=== PATIENT | female | born 1985 ===

== ENCOUNTER 2019-02-17 09:56 | Inpatient (IN) | payer MEDICAID ==
[2019-02-17 10:47] VITALS: BMI 29.9
[2019-02-17] MEDS ORDERED: Penicillin G 5 Million Unit Vial IVPB ONE ×2 (10:49→11:30)
[2019-02-17] MEDS ORDERED: Lactated Ringer's 1,000 ML IV SCH (11:00)
[2019-02-17 11:17] LABS: BASO % 0.4 % (0.0-2.0); EOS # 0.1 K/uL (0.0-0.7); EOS % 1.4 % (0.0-4.0); HEMOGLOBIN 11.5 g/dL (11.0-16.0); LYMPH # 2.6 K/uL (1.0-4.3); LYMPH % 28.2 % (20.0-40.0); MEAN CELL VOLUME 83.5 fL (81.0-99.0); MEAN CORPUSCULAR HEMOGLOBIN 28.3 pg (27.0-31.0); MEAN CORPUSCULAR HGB CONC 33.8 g/dL (33.0-37.0); MEAN PLATELET VOLUME 11.2 fL (7.2-11.7); MONO # 0.4 K/uL (0.0-0.8); MONO % 4.1 % (0.0-10.0); NEUT # 6.1 K/uL (1.8-7.0); NEUT % 65.9 % (50.0-75.0); RBC 4.08 Mil/uL (3.80-5.20); RED CELL DISTRIBUTION WIDTH 15.9 % (11.5-14.5); WHITE BLOOD COUNT 9.2 K/uL (4.8-10.8)
[2019-02-17 11:33] LABS: ALB/GLOB RATIO 1.1 (1.0-2.1); ALBUMIN 3.8 g/dL (3.5-5.0); ALT/SGPT 11 U/L (9-52); AST/SGOT 26 U/L (14-36); BLOOD UREA NITROGEN 9 mg/dL (7-17); CALCIUM 9.5 mg/dl (8.6-10.4); GFR NON-AFRICAN AMERICAN > 60
[2019-02-17] MEDS ORDERED: Fentanyl/Bupivacaine HCl 250 ML EPI ONE (11:36)
[2019-02-17 11:43] LABS: SQUAMOUS EPITHIAL 1 /hpf (0-5); URINE BILIRUBIN NEGATIVE (NEGATIVE); URINE BLOOD NEGATIVE (NEGATIVE); URINE CLARITY Clear (Clear); URINE COLOR Straw (YELLOW); URINE GLUCOSE (UA) NORMAL (Normal); URINE LEUKOCYTE ESTERASE NEG Leu/uL (Negative); URINE PROTEIN NEGATIVE (NEGATIVE); URINE UROBILINOGEN NORMAL mg/dL (0.2-1.0)
[2019-02-17] MEDS ORDERED: Oxytocin 20 units in LR 2,000 ML IV ONE (14:15)
[2019-02-17] MEDS ORDERED: Oxytocin 30 UNIT in NS 500 ml 30 UNITS/500 ML BAG IV SCH (16:10)
[2019-02-17] MEDS ORDERED: Oxytocin 30 UNIT in NS 500 ml 30 UNITS/500 ML BAG IV ONE (16:13)
[2019-02-17] MEDS ORDERED: Benzocaine/Menthol 20%-0.5% Topical Spray (60 ml) TOP PRN (16:56)
[2019-02-17] MEDS ORDERED: Oxycodone/Acetaminophen 5/325 mg Tab PO PRN (16:56)
--- NOTE | 2019-02-17 19:38 | OBPN ---
Datetime: 02/17/2019 13:48 IP Progress Note Comment: Patient seen and examined at bedside Patient is with epidural Grossly ruptured with light meconium SVE: 10/100cm/0, with left anterior lip Plan: Labor down, allow second dose of penicillin G at 15:30 and initiate pitocin after second dos e of antibiotics -Continue to anticipate vaginal delivery All plans and management discussed with Dr. Pushpa Curry DO, PGY 2 OB ADDENDUM: pt seen _ examined by me w/ dr curry. agree with above p: will have printed circuit designer attend delivery.
--- NOTE | 2019-02-17 19:55 | OBDS ---
DELIVERY PERSONNEL Delivery Doctor: Xenia Goins MD Diesel Engine Fitter: Jes Forte RN Anesthesiologist: Dr Ruffin Resident: Dr Nick Em MATERNAL INFORMATION Delivery Anesthesia: Epidural Medications in Delivery: 30 units of pitocin in 500 ml NS Placenta Cultured: No Maternal Complications: None Other Maternal Complications: +GBS RN Comments: liveborn female infant, 9,9 Provider Comments: 33 years now delivered a viable female via over an intact pe rineum at 16:39. The 's head delivered in a controlled manner in OA direction with no nuchal co rd. The 's shoulder presented in a transverse position and delivered atraumatically. The infant 's body was delivered without difficulty. 's mouth and nose was suctioned with a bulb syringe. The cord was clamped and cut after 60 seconds delayed. Cord blood was collected. Infant was placed o n mother's abdomen. An intact placenta with 3VC was delivered. Uterus was firm with upper and lower s egment massage and with IV pitocin. EBL was 500ml. The infant weighed 8lbs 10oz with 9 and 9. M other and baby are recovering in a stable condition. All sponge and instruments are correct. Dr. Gilberto atkinson was present for the entire delivery with Resident tatum as well. LABOR SUMMARY EDC: 02/21/2019 00:00 No. Babies in Womb: 1 Attempted: No Labor Anesthesia: Epidural LABOR INFORMATION Reason for Induction: Not Applicable Onset of Labor: 02/17/2019 10:28 Complete Dilatation: 02/17/2019 13:46 Oxytocin: Augmentation Group B Beta Strep: Positive Antibiotics # of Doses: 2 Antibiotics Time of Last Dose: 1530 Steroids Given: None Reason Steroids Not Administered: Not Applicable MEMBRANES Membranes Rupture Method: Spontaneous Rupture of Membranes: 02/17/2019 12:00 Length of Rupture (hrs): 4.65 Amniotic Fluid Color: Light Meconium Amniotic Fluid Amount: Moderate Amniotic Fluid Odor: None STAGES OF LABOR Stage 1 hrs: 3 Stage 1 min: 18 Stage 2 hrs: 2 Stage 2 min: 53 Stage 3 hrs: 0 Stage 3 min: 8 Total Time in Labor hrs: 6 Total Time in Labor min: 19 VAGINAL DELIVERY Episiotomy: None Laceration Extension: N/A Laceration Type: None Initial Vag Sponge Count: 11 Final Vag Sponge Count: 11 Sponge Count Correct: Yes Sharps Count Correct: Yes BABY A INFORMATION Infant Delivery Date/Time: 02/17/2019 16:39 Method of Delivery: Vaginal Born in Route : No : N/A Forceps: N/A Vacuum Extraction: N/A Shoulder Dystocia : No SHOULDER DYSTOCIA BABY A Infant Delivery Date/Time: 02/17/2019 16:39 PRESENTATION/POSITION BABY A Presentation: Cephalic Cephalic Presentation: Vertex Vertex Position: Right Occipital Anterior Breech Presentation: N/A PLACENTA INFORMATION BABY A Placenta Delivery Time : 02/17/2019 16:47 Placenta Method of Delivery: Expressed Placenta Status: Delivered SCORES BABY A Heart Rate 1 min: >100 bpm Resp Effort 1 min: Good Cry Reflex Irritability 1 min: Cough or Sneeze or Pulls Away Muscle Tone 1 min: Active Motion Color 1 min: Body [place], Extremities Blue Resuscitation Effort 1 min: Tactile Stimulation SCORE 1 MIN: 9 Heart Rate 5 min: >100 bpm Resp Effort 5 min: Good Cry Reflex Irritability 5 min: Cough or Sneeze or Pulls Away Muscle Tone 5 min: Active Motion Color 5 min: Body [place], Extremities Blue Resuscitation Effort 5 min: N/A SCORE 5 MIN: 9 INFORMATION BABY A Gestational Age at Delivery: 39.3 Gestational Status: Term Infant Outcome : Liveborn Infant Condition : Stable Sex: Female IDENTIFICATION/MEDS BABY A ID Band Number: [id number] ID Band Location: Left Leg; Left Arm Sensor Applied: Yes Sensor Number: [id number] Sensor Location : Cord Clamp Vitamin K Given : Not Given Erythromycin Given: Not Given WEIGHT/LENGTH BABY A Infant Birthweight (gms): 3925 Weight (lb): 8 Weight (oz): 10 Length Inches: 19.00 Infant Length cms: 48.3 CORD INFORMATION BABY A No. Cord Vessels: 3 Nuchal Cord : N/A Cord Blood Taken: Yes Suction: None ASSESSMENT BABY A Infant Complications: None Physical Findings at Delivery: Within Normal Limits Infant Respirations: Appears Normal Wastewater Project Engineer/ALS Called : No Infant Care By: May White RN, Dr Jordan Transferred To: Remains with Mother (Annotations: Data stored by N on behalf of user)
[2019-02-18 08:17] LABS: BASO # 0.1 K/uL (0.0-0.2); BASO % 0.5 % (0.0-2.0); EOS # 0.1 K/uL (0.0-0.7); EOS % 0.7 % (0.0-4.0); HEMOGLOBIN 10.4 g/dL (11.0-16.0); LYMPH # 2.9 K/uL (1.0-4.3); LYMPH % 26.2 % (20.0-40.0); MEAN CELL VOLUME 83.9 fL (81.0-99.0); MEAN CORPUSCULAR HEMOGLOBIN 28.4 pg (27.0-31.0); MEAN CORPUSCULAR HGB CONC 33.8 g/dL (33.0-37.0); MEAN PLATELET VOLUME 11.8 fL (7.2-11.7); MONO # 0.5 K/uL (0.0-0.8); MONO % 4.7 % (0.0-10.0); NEUT # 7.6 K/uL (1.8-7.0); NEUT % 67.9 % (50.0-75.0); NRBC % 0.1 % (0.0-2.0); RBC 3.66 Mil/uL (3.80-5.20); RED CELL DISTRIBUTION WIDTH 15.9 % (11.5-14.5); WHITE BLOOD COUNT 11.2 K/uL (4.8-10.8)
--- NOTE | 2019-02-18 09:30 | OBPN ---
Datetime: 02/17/2019 16:04 IP Progress Impression: Normal progression of labor IP Informed Consent Obtain: Vaginal Delivery IP Procedures: Sterile Vag Exam Membranes, Provider: Ruptured Amniotic Fluid Color, Provider: Meconium, Light Gestation - Est Wks by US: 39.3 Vital Signs Provider: Within Normal Limits NICHD Accel Fetus A IP Provider: 15X15 Dilatation, Provider: 10 Effacement, Provider: 100 Station, Provider: 1 NICHD Decel Fetus A IP Provider: Early Datetime: 02/17/2019 13:48 IP Progress Plan: Continue present management FHR Category Provider Fetus A: Category I Datetime: 02/17/2019 12:05 IP Progress Note Comment: Patient seen and examined at bedside. Patient is s/p epidural. Complaining of leakage of fluid. Offers no other complaints at this time. SVE: 6/-2 Grossly ruptured - moderate amount of clear fluid A/P: 33 year old at 39w3d in active labor, s/p epidural -Patient is grossly ruptured on examination -Reassuring status -GBS Positive - continue Pen G 2.5 MMU q4H until delivery -Continue present management -Anticipate vaginal delivery Plan discussed with Dr Briseida Romero DO PGY-2 ob addenduM agree w/ assessment and plan. Datetime: 02/17/2019 11:30 NICHD Variability Prov Fetus A: Moderate 6-25bpm Datetime: 02/17/2019 10:29 Contraction Comments Provider: q5-6min FHR - Baseline A Provider: 140-130 Presentation-Admit: Vertex
--- NOTE | 2019-02-18 09:31 | OBHP ---
Datetime: 02/17/2019 16:04 Presentation-Admit: Transverse FHR - Baseline A Provider: 130 Amniotic Fluid Color, Provider: Meconium, Light Membranes, Provider: Ruptured Gestation - Est Wks by US: 39.3 Vital Signs Provider: Within Normal Limits NICHD Variability Prov Fetus A: Moderate 6-25bpm NICHD Accel Fetus A IP Provider: 15X15 NICHD Decel Fetus A IP Provider: Early Dilatation, Provider: 10 Effacement, Provider: 100 Station, Provider: 1 Datetime: 02/17/2019 13:48 FHR Category Provider Fetus A: Category I Datetime: 02/17/2019 12:05 Contraction Comments Provider: q3-4 min Datetime: 02/17/2019 10:29 IP Adm Impression: Term, intrauterine IP Admit Plan: Admit to unit Admit Comment, IP Provider: CC: Contractions HPI: Patient is a 33 year old at 39.3 weeks, with ABELINO (02/21/19) by US and LMP, who present s to [facility] with complaints of contractions that started at 7am with minimal leakage of fluid and admit s to movement. Patient denies any vaginal bleeding. Patient denies any complications during thi s and follows up with [facility]. Patient had her last ultrasound during the first week of January and fetus was vertex. OB Hx: G1: Male , 7lbs, with no complications, 2004 G2: Female , 7lbs, with no complications, 2007 G3: Male , at 5 months, fetus was alive for 3 days; , 2010 G4: Female , 7lbs, with no complications, 2011 G5: Female , 7lbs 12oz, with no complications, 2016 Gynecology Hx: Menarche: 13/ regular/ 4-6 days Denies hx of STDs, ovarian cyst/fibroids Admits to normal pap smear Hx PMHx: Asthma; last inhaler use was 6 years ago PSHx: Denies FHx: Both father and mother are alive - Mother: HTN Medications: Allergies: NKDA Social Hx: Lives with family, Denies any current or former use of ETOH, illicit drug or tobacco us e Vital Signs: Refer to the vital signs box PE: Refer to the PE comment box A/P: 33 year old at 39.3 weeks, with ABELINO (02/21/19) by US and LMP, who presents to [facility] wit h complaints of contractions that started at 7am 1. Admit to the unit 2. Admission labs: See orders on meditech 3. Elevated BP on triage, no hx of pre-eclampsia: - Labs ordered: CMP, Coags, Fibrinogen, LDH 4. LR @ 125cc/hr 5. CEFM and toco 6. Anesthesia consult as requested All plans and managment discussed with Attending, Dr. Pushpa Curry DO, PGY-1 OB ATTENDING ADDENDUM: pt seen _ examined by me with dr curry. agree w/ above assessment and plan with following addendu m: pt denies h/a, scotomata, ruq pain, n/v I: Elevated BP eval for preeclampsia Labor @ 39wks P: as above for epidural per pt request. Comments, ACOG Physical Exam: Gen: NAD Cardio: RRR, +S1, +S2, no murmurs Pulm: CTA bilaterally Abdomen: Soft - hard(contraction), gravid, fundal height (39cm) Extremites: No edema, no cyanosis and no clubbing SVE: 5-6cm, 80%, -2 TOCO: q5-6mins EFM: 140s, + accelerations EGA AdmitDate IP: 39.3 IP Chief Complaint: Uterine contractions
--- NOTE | 2019-02-18 10:17 | OBPPN ---
Datetime: 02/18/2019 06:44 PP Pain Prov: Within normal limits PP Nausea Prov: Denies PP Flatus Prov: Yes PP BM Prov: No PP Breasts Prov: Normal PP Heart Prov: Normal PP Lungs Prov: Normal PP Abdomen/Uterus Prov: Normal PP Lochia Prov: Normal PP Extremities Prov: Normal PP Comments Phys Exam Prov: Gen: Not in acute distress Cardio: RRR, +S1, +S2, no murmurs Pulm: CTA bilaterally Abdomen: Soft, non-tender, fundus is firm and at the umbilicus : Moderate lochia, perineum intact Extremites: No edema and no calf tenderness PP Impression Prov: Normal progression PP Plan Prov: Continue present management PP Progress Note Prov: Patient was seen and examined at bedside as she was resting in bed comfortabl y. Patient states that she is doing well and has no acute complaints. Patient has been out of bed and walking without any difficulties. Patient states that urinating without any difficulties, but denies bowel movement. Patient has been eating regular diet without any difficulties and denies any symptom s of nausea/vomiting. Patient denies any symptoms of fever, chills, chest pain, palpitations, dyspnea , abdominal pain, abnormal vaginal discharge or bleeding, dizziness at rest or with walking or calf t enderness. Patient is breast feeding without any issues. VS: Labs: 9.2>11.5/34.1<141 O+, Rubella positive Physical Examination: Gen: Not in acute distress Cardio: RRR, +S1, +S2, no murmurs Pulm: CTA bilaterally Abdomen: Soft, non-tender, fundus is firm and at the umbilicus : Moderate lochia, perineum intact Ext: No edema, no calf tenderness A/P: 33 years old female at 39.3 weeks, who is now via , PPD # 1 1. Afebrile, stable 2. F/u routine labs (H/H) 3. Encourage ambulation and hydration 4. Encourage 5. Continue with present management 6. Anticipate discharge tomorrow All plans and management discuss with Dr. Lincoln Attending Note: patient seen, evaluated and examined by me with the Resident. I agree with the abo ve as documented.
[2019-02-19 09:16] VITALS: BP 107/77; PULSE 82; RESP 18; TEMP 97.6; O2SAT 98
== END 2019-02-19 13:00 | disposition home or self-care (01) | DRG 560 ==
LOC: C.EROB 09:56 → C.4D 10:49 → C.4M 16:30
PROVIDERS: ADMIT Obstetrics & Gynecology; ATTEND Obstetrics & Gynecology
PROC: 10E0XZZ Delivery of Products of Conception, External Approach (ICD-10-PCS; principal; 2019-02-17)
DX: O77.0 Labor and delivery complicated by meconium in amniotic fluid (principal); O99.824 Streptococcus B carrier state complicating childbirth; Z3A.39 39 weeks gestation of pregnancy; Z37.0 Single live birth